=== PATIENT | male | born 1970 | race Caucasian/White ===

== ENCOUNTER → 2018-04-07 07:44 | Outpatient (CLI) | payer MEDICARE, MEDICAID, SELFPAY ==
[2018-04-07 08:36] LABS: Carbamazepine (Tegretol) 8.9 ug/mL (4.0-12.0)
[2018-04-10 11:51] LABS: Topiramate 14.2 ug/mL (2.0-25.0)
== END ==
PROVIDERS: Family Provider Family Medicine; PCP Family Medicine; Visit Provider Psychiatry & Neurology Neurology
DX: G25.0 Essential tremor (principal); G40.009 Localization-related (focal) (partial) idiopathic epilepsy and epileptic syndromes with seizures of localized onset, not intractable, without status epilepticus; G43.119 Migraine with aura, intractable, without status migrainosus; R27.0 Ataxia, unspecified
CPT/HCPCS: 36415; 80156; 80184; 80188; 80201

== ENCOUNTER 2018-05-27 15:07 | Observation (INO) | payer MEDICARE, MEDICAID, SELFPAY ==
[2018-05-27] VITALS (11 sets, daily range): BP systolic 102–148; BP diastolic 69–82; PULSE 74–87; RESP 14–16; TEMP 36.7–37; O2SAT 94–98; BMI 33.9; BMI 34.0
--- NOTE | 2018-05-27 15:55 | EKG12_ITS ---
Test Reason : POSTERIOR EKG Blood Pressure : / mmHG Vent. Rate : 085 BPM Atrial Rate : 085 BPM P-R Int : 182 ms QRS Dur : 090 ms QT Int : 384 ms P-R-T Axes : 023 011 -49 degrees QTc Int : 456 ms Normal sinus rhythm Anteroseptal infarct , age undetermined T wave abnormality, consider inferior ischemia Abnormal ECG Confirmed by CRISTEL HARRISON, NAYANA ([id number]), social media editor JANIS RILEY ([id number]) on 05/28/2018 1:32:24 PM Referred By: Ozzie Dailey Confirmed By:NAYANA FAM MD
--- NOTE | 2018-05-27 15:57 | RAD_ITS ---
STUDY: X-RAY CHEST REASON FOR EXAM: Male, 47 years old. Acute chest pain TECHNIQUE: Single AP portable view of the chest. COMPARISON: 01/29/2012 FINDINGS: EKG leads overlie the chest The lungs are clear and expanded. There is no demonstrated pleural abnormality. Normal size heart. Normal mediastinum and kemi. Normal visualized pulmonary arteries. Normal visualized aortic arch and descending thoracic aorta. Normal visualized thoracic spine. Normal visualized ribs, clavicles, and shoulders. There is no demonstrated abnormality of the visualized soft tissue structures of the upper abdomen. RAD/Chest 1 View (Portable) IMPRESSION: Normal x-ray examination of the chest. Electronically Signed: Moise Elliott MD at 16:28 EDT , Service support ,
[2018-05-27 16:17] LABS: Absolute Lymphocyte Count 1.75 X10^3/ul (0.83-4.51); Absolute Neutrophil Count 7.5 X10^3/uL (2.0-7.7); Basophil# 0.03 X10^3/uL; Basophil% 0.3 % (0-1); Eosinophils% 3.8 % (0-5); Hematocrit 40.2 % (40-54); Hemoglobin 14.3 g/dl (13.0-16.5); Lymphocyte # 1.75 X10^3/ul (4.0); Lymphocyte % 16.8 % (19-41); Mean Corp Hgb Conc 35.6 g/gl (32-36); Mean Corpuscular Hgb 31.2 pg (27.0-32.0); Mean Corpuscular Volume 87.6 fL (80-94); Mean Platelet Vol. 8.8 fl (6.2-12.0); Monocyte# 0.73 X10^3/uL; Neutrophil # 7.47 X10^3/uL (2.7-7.7); Neutrophil % 71.7 % (47-70); Platelet Count 260 K/mm3 (150-450); RBC Distribution Width CV 12.6 % (11.6-14.6); RBC Distribution Width SD 39.3 fl (35.1-43.9); Red Blood Count 4.59 M/mm3 (4.6-6.2); White Blood Count 10.4 K/mm3 (4.4-11.0)
--- NOTE | 2018-05-27 16:23 | ED.VISSUMM ---
- ER Visit Summary Date of Service: 05/27/18 Chief Complaint: Chest pain History of Present Illness: The patient is a 47 M presenting with chest pain. Patient states this started around 6 AM. Pain has been intermittent today. It is worsened with exertion and relieved with rest. It is a 5 out of 10 pressure sensation. He has associated shortness of breath. He denies nausea, vomiting, diaphoresis. Pain is in his left chest and radiates to his left jaw. No coronary disease risk factors. He has a remote history of basal cell carcinoma. He is not a smoker. Physical Examination: Vitals are stable. Patient is afebrile. Alert no acute distress. HEENT exam is unremarkable. Neck is supple. Lungs are clear and equal bilaterally. Heart is regular rate and rhythm. Abdomen is soft nontender nondistended. Extremities are unremarkable. Skin is warm and dry. No focal neurologic deficit. Remainder of exam is unremarkable. Emergency Department Course and Treatment: EKG is sinus rate of 81 with diffuse T-wave inversion. There is no old for comparison. CBC, chemistries unremarkable other than sodium 132. Troponin is negative. D-dimer negative. Dilantin level is less than 0.4. Patient has allergy to aspirin. Chest x-ray shows no acute process. He has mild depression in lead V2 and posterior EKG was obtained and shows no ST elevation. He is pain free on re-evaluation. Discussed with the hospitalist for observation. Disposition: Observation Impression: Chest pain This note was generated with woohoo mobile marketing dictation software. It may contain incorrect words, spelling, and punctuation that were not noted in review of the chart prior to signing ED Disposition - Plan for ED Patient: Disposition: Acute Care Hospital [facility] Chief Complaint: Chest Pain
[2018-05-27 16:25] LABS: POSITIVE COUNT NO; POSITIVE DIFFERENTIAL NO; POSITIVE MORPHOLOGY NO
[2018-05-27 16:28] LABS: D-Dimer Quantitative (DVT/PE) < 0.27 FEU/ug/m (0.27-0.49)
--- NOTE | 2018-05-27 16:31 | EKG12_ITS ---
Test Reason : CP Blood Pressure : / mmHG Vent. Rate : 081 BPM Atrial Rate : 081 BPM P-R Int : 182 ms QRS Dur : 090 ms QT Int : 364 ms P-R-T Axes : 004 017 -51 degrees QTc Int : 422 ms Normal sinus rhythm ST & T wave abnormality, consider inferior ischemia ST & T wave abnormality, consider anterolateral ischemia Abnormal ECG Confirmed by CRISTEL HARRISON, NAYANA ([id number]), graphic editor JANIS RILEY ([id number]) on 05/28/2018 1:32:58 PM Referred By: Ozzie Dailey Confirmed By:NAYANA FAM MD
[2018-05-27 16:35] LABS: Anion Gap 10 (5-15); BUN 8 mg/dL (7-18); BUN/Creat Ratio 7.8 RATIO (10-20); Calcium,Total 8.9 mg/dL (8.5-10.1); Chloride 102 mmol/L (98-107); Creatinine, Serum 1.03 mg/dL (0.70-1.30); EST Glomerular Filtration Rate 82 mL/min (>60); Est Glom Filt Rate - Afr Amer 99 mL/min (>60); Estimated Creatinine Clearance 96.27 ml/min; Glucose 94 mg/dL (74-106); Potassium 4.1 mmol/L (3.5-5.1); Sodium Level 132 mmol/L (136-145)
[2018-05-27 16:40] LABS: Phenytoin (Dilantin) Level < 0.4 mL (10.0-20.0)
--- NOTE | 2018-05-27 16:55 | NURSING ---
DR ÁNGEL MONTEJO
--- NOTE | 2018-05-27 17:10 | NURSING ---
115 OBS CP ÁNGEL
--- NOTE | 2018-05-27 17:46 | PCM.HP.STD ---
Problem List (1) Atypical chest pain Status: Acute (2) Epilepsy Status: Chronic (3) Migraine headache Status: Chronic (4) Dyslexia Status: Chronic (5) Obesity Status: Chronic History of Present Illness Date of Admission: 05/27/18 Chief Complaint: Chest pain today The patient is a 47 year old M with history of epilepsy, type and cause unclear but from childhood, delayed learning, dyslexia and migraine headache on multiple neurological medications came to ER with chest pain at 6 AM. Patient started having chest pain while he was having his breakfast cereal. Chest pain is localized on left side with no associated shortness of breath, palpitation, arrhythmia or diaphoresis but he was mildly dizzy. He denies any previous history of OH or coronary artery disease or stress or echo in the past. He does not know about his father but as per her mother, his grandfather had coronary artery disease and he in 80s. EKG shows normal sinus rhythm at 81 bpm with diffuse T-wave inversion V2 to V6, 1, aVL and inferior leads. Posterior lead EKG was done and shows slight ST elevation about 0.5-1 mm in V1 through V3 and AVR. ER physician Dr. Velasquez discussed with Dr. jennings, the whiskey regauger on-call and agreed for admission for chest pain and observation stress test tomorrow. D-dimer, troponin is negative. [] Past Medical History Past Medical History (Chronic Problems): Chronic Problems Epilepsy (Chronic) Migraine headache (Chronic) Dyslexia (Chronic) Obesity (Chronic) Allergies aspirin Allergy (Severe, Verified 06/09/14 09:01) swelling of lips red dye Allergy (Intermediate, Verified 06/09/14 09:01) facial swelling isoniazid Adverse Reaction (Verified 06/09/14 09:06) Nausea Home Medications: Ambulatory Orders Medication Instructions Recorded Benztropine [Cogentin] 2 mg PO BID 06/09/14 Carbamazepine [Tegretol] 200 - 400 mg PO .COMPLEX 06/09/14 Haloperidol 1.5 mg PO BID 06/09/14 Hydrocodone/Acetaminophen [Vicodin 1 tablet PO Q6H PRN PRN 06/09/14 5-300 mg Tablet] Lamotrigine [Lamictal] 150 mg PO DAILY 06/09/14 Lansoprazole [Prevacid] 30 mg PO DAILY 06/09/14 Dextroamphetamine/Amphetamine 30 mg PO DAILY 05/27/18 [Adderall 30 mg Tablet] Olanzapine/Fluoxetine HCl [Symbyax 3 capsule PO DAILY 05/27/18 6-25 MG Capsule] Primidone [Mysoline] 50 mg PO BID 05/27/18 Propranolol HCl [Propranolol HCl 160 mg PO DAILY 05/27/18 ER] Sumatriptan Succinate 50 mg PO Q2H PRN PRN 05/27/18 Tamsulosin HCl [Flomax] 0.4 mg PO QHS 05/27/18 Topiramate [Topamax] 400 mg PO BID 05/27/18 Smoking Status: Never smoker - *Family History Paternal History Items: Unknown Review of Systems Constitutional: Denies: Chills, Fever, Weight Change HEENT: Denies: Head Aches, Sinus Congestion, Sinus Drainage Cardiovascular: Reports: Chest Pain. Denies: Palpitations Respiratory: Denies: Cough, Shortness of breath at rest, Sputum production Gastrointestinal: Denies: Abdominal Pain, Nausea, Vomiting Genitourinary: Denies: Dysuria Musculoskeletal: Denies: Joint Pain, Joint Tenderness Skin: Denies: Rash, Wounds Neurological: Reports: Balance problems, Blurred vision, Headaches, Incoordination. Denies: Focal weakness, Numbness, Tingling Psychiatric: Denies: Anxiety, Depression, Homicidal Ideations, Suicidal Ideations Hematologic/ Lymphatic: Denies: Easy Bruising, Easy Bleeding VTE Information - Inpt Only VTE Present on Admission: No VTE Mechan Device Prophylaxis: None VTE Pharm Prophylaxis ordered?: Yes Patient Problems: Active and Suspected Problems Atypical chest pain (Acute) - Physical Exam General: Alert, Oriented x3, Cooperative, - HEENT: Atraumatic, PERRLA, EOMI, Normocephalic, - - Decreased revision of acuity Neck: Supple, No JVD, Negative Carotid Bruits Lungs: Clear to auscultation, Normal air movement, No rhonchi, No wheeze, No rales Cardiovascular: Regular rate, Regular Rhythm, Normal S1, Normal S2, No murmurs Abdomen: Bowel Sounds Present, Soft, Non Tender, Non-Distended Extremities: No edema, Capillary Refill Less than 3 Seconds Skin: No rashes, No breakdown Musculoskeletal: No Tenderness to Palpation of Joints or Extremities Neurological: Cranial nerves II-XII grossly intact, - - Decreased vision of acuity. Gait incoordination, low cognitive function Psych/Mental Status: Normal Affect, Appropriate Vital Signs Temp Pulse Resp BP Pulse Ox 98.1 F 76 14 121/72 H 98 05/27/18 15:11 05/27/18 17:11 05/27/18 17:11 05/27/18 17:11 05/27/18 17:11 Assessment/Plan All Active Problems Atypical chest pain (Acute) The patient is a 47 year old M with history of epilepsy, type and cause unclear but from childhood, delayed learning, dyslexia and migraine headache on multiple neurological medications came to ER with chest pain at 6 AM. Patient started having chest pain while he was having his breakfast cereal. Chest pain is localized on left side with no associated shortness of breath, palpitation, arrhythmia or diaphoresis but he was mildly dizzy. He denies any previous history of OH or coronary artery disease or stress or echo in the past. He does not know about his father but as per her mother, his grandfather had coronary artery disease and he in 80s. EKG shows normal sinus rhythm at 81 bpm with diffuse T-wave inversion V2 to V6, 1, aVL and inferior leads. Posterior lead EKG was done and shows slight ST elevation about 0.5-1 mm in V1 through V3 and AVR. Patient still feels chest pain though it is much better and almost resolved ER physician Dr. Velasquez discussed with Dr. jennings, the whiskey regauger on-call and agreed for admission for chest pain and observation stress test tomorrow. D-dimer, troponin is negative. 1. Atypical chest pain probably related to esophageal spasm, Rule out acute coronary syndrome: Patient is being admitted on PCU floor. Cycle cardiac enzymes. Repeat EKG after 4 hours. Lexiscan nuclear stress test tomorrow a.m. 2. Chronic epilepsy disorder, migraine headache, ADHD, delayed learning ability, gait incoordination and recurrent fall: Continue patient's multiple neurological medications. Patient follows Dr. rodriguez. He is on Tegretol, Lamictal, olanzapine/fluoxetine, propranolol, Cogentin, primidone, Topamax, haloperidol and dextroamphetamine. 3. Low functional capacity with recurrent fall: PT and OT ordered. His mother is caregiver. DVT prophylaxis: On Lovenox 40 mg subcut daily. [] Laboratory Results 05/27/18 15:20: WBC 10.4, RBC 4.59 L, Hgb 14.3, Hct 40.2, MCV 87.6, MCH 31.2, MCHC 35.6, RDW 12.6, RDW Differential 39.3, Plt Count 260, MPV 8.8, Immature Gran % (Auto) 0.400, Neut % (Auto) 71.7 H, Lymph % (Auto) 16.8 L, [place] % (Auto) 7.0, Eos % (Auto) 3.8, Baso % (Auto) 0.3, Absolute Neuts (auto) 7.5, Absolute Lymphs (auto) 1.75, Total Counted Not Reportable 05/27/18 15:20: D-Dimer Quant (PE/DVT) < 0.27 L 05/27/18 15:20: Sodium 132 L, Potassium 4.1, Chloride 102, Carbon Dioxide 20.0 L, Anion Gap 10, BUN 8, Creatinine 1.03, Estim Creat Clear Calc 96.27, Est GFR (MDRD) Af Amer 99, Est GFR (MDRD) Non-Af 82, BUN/Creatinine Ratio 7.8 L, Glucose 94, Calcium 8.9, Troponin I < 0.015 05/27/18 15:20: Phenytoin < 0.4 L Clinical Impression(s) from Imaging Studies Chest X-Ray 05/27/18 15:57 IMPRESSION: Normal x-ray examination of the chest. Code Visit OBSV E&M: 29507 Initial observation care L3
--- NOTE | 2018-05-27 17:58 | HP.PCM_ITS ---
Problem List (1) Atypical chest pain Status: Acute (2) Epilepsy Status: Chronic (3) Migraine headache Status: Chronic (4) Dyslexia Status: Chronic (5) Obesity Status: Chronic History of Present Illness Date of Admission: 05/27/18 Chief Complaint: Chest pain today The patient is a 47 year old M with history of epilepsy, type and cause unclear but from childhood, delayed learning, dyslexia and migraine headache on multiple neurological medications came to ER with chest pain at 6 AM. Patient started having chest pain while he was having his breakfast cereal. Chest pain is localized on left side with no associated shortness of breath, palpitation, arrhythmia or diaphoresis but he was mildly dizzy. He denies any previous history of NC or coronary artery disease or stress or echo in the past. He does not know about his father but as per her mother, his grandfather had coronary artery disease and he in 80s. EKG shows normal sinus rhythm at 81 bpm with diffuse T-wave inversion V2 to V6, 1, aVL and inferior leads. Posterior lead EKG was done and shows slight ST elevation about 0.5-1 mm in V1 through V3 and AVR. ER physician Dr. Velasquez discussed with Dr. ejnnings, the economics professor on-call and agreed for admission for chest pain and observation stress test tomorrow. D -dimer, troponin is negative. [] Past Medical History Past Medical History (Chronic Problems): Chronic Problems Epilepsy (Chronic) Migraine headache (Chronic) Dyslexia (Chronic) Obesity (Chronic) Allergies aspirin Allergy (Severe, Verified 06/09/14 09:01) swelling of lips red dye Allergy (Intermediate, Verified 06/09/14 09:01) facial swelling isoniazid Adverse Reaction (Verified 06/09/14 09:06) Nausea Home Medications: Ambulatory Orders Medication Instructions Recorded Benztropine [Cogentin] 2 mg PO BID 06/09/14 Carbamazepine [Tegretol] 200 - 400 mg PO .COMPLEX 06/09/14 Haloperidol 1.5 mg PO BID 06/09/14 Hydrocodone/Acetaminophen [Vicodin 1 tablet PO Q6H PRN PRN 06/09/14 5-300 mg Tablet] Lamotrigine [Lamictal] 150 mg PO DAILY 06/09/14 Lansoprazole [Prevacid] 30 mg PO DAILY 06/09/14 Dextroamphetamine/Amphetamine 30 mg PO DAILY 05/27/18 [Adderall 30 mg Tablet] Olanzapine/Fluoxetine HCl [Symbyax 3 capsule PO DAILY 05/27/18 6-25 MG Capsule] Primidone [Mysoline] 50 mg PO BID 05/27/18 Propranolol HCl [Propranolol HCl 160 mg PO DAILY 05/27/18 ER] Sumatriptan Succinate 50 mg PO Q2H PRN PRN 05/27/18 Tamsulosin HCl [Flomax] 0.4 mg PO QHS 05/27/18 Topiramate [Topamax] 400 mg PO BID 05/27/18 Smoking Status: Never smoker - *Family History Paternal History Items: Unknown Review of Systems Constitutional: Denies: Chills, Fever, Weight Change HEENT: Denies: Head Aches, Sinus Congestion, Sinus Drainage Cardiovascular: Reports: Chest Pain. Denies: Palpitations Respiratory: Denies: Cough, Shortness of breath at rest, Sputum production Gastrointestinal: Denies: Abdominal Pain, Nausea, Vomiting Genitourinary: Denies: Dysuria Musculoskeletal: Denies: Joint Pain, Joint Tenderness Skin: Denies: Rash, Wounds Neurological: Reports: Balance problems, Blurred vision, Headaches, Incoordination. Denies: Focal weakness, Numbness, Tingling Psychiatric: Denies: Anxiety, Depression, Homicidal Ideations, Suicidal Ideations Hematologic/ Lymphatic: Denies: Easy Bruising, Easy Bleeding VTE Information - Inpt Only VTE Present on Admission: No VTE Mechan Device Prophylaxis: None VTE Pharm Prophylaxis ordered?: Yes Patient Problems: Active and Suspected Problems Atypical chest pain (Acute) - Physical Exam General: Alert, Oriented x3, Cooperative, - HEENT: Atraumatic, PERRLA, EOMI, Normocephalic, - - Decreased revision of acuity Neck: Supple, No JVD, Negative Carotid Bruits Lungs: Clear to auscultation, Normal air movement, No rhonchi, No wheeze, No rales Cardiovascular: Regular rate, Regular Rhythm, Normal S1, Normal S2, No murmurs Abdomen: Bowel Sounds Present, Soft, Non Tender, Non-Distended Extremities: No edema, Capillary Refill Less than 3 Seconds Skin: No rashes, No breakdown Musculoskeletal: No Tenderness to Palpation of Joints or Extremities Neurological: Cranial nerves II-XII grossly intact, - - Decreased vision of acuity. Gait incoordination, low cognitive function Psych/Mental Status: Normal Affect, Appropriate Vital Signs Temp Pulse Resp BP Pulse Ox 98.1 F 76 14 121/72 H 98 05/27/18 15:11 05/27/18 17:11 05/27/18 17:11 05/27/18 17:11 05/27/18 17:11 Assessment/Plan All Active Problems Atypical chest pain (Acute) The patient is a 47 year old M with history of epilepsy, type and cause unclear but from childhood, delayed learning, dyslexia and migraine headache on multiple neurological medications came to ER with chest pain at 6 AM. Patient started having chest pain while he was having his breakfast cereal. Chest pain is localized on left side with no associated shortness of breath, palpitation, arrhythmia or diaphoresis but he was mildly dizzy. He denies any previous history of NC or coronary artery disease or stress or echo in the past. He does not know about his father but as per her mother, his grandfather had coronary artery disease and he in 80s. EKG shows normal sinus rhythm at 81 bpm with diffuse T-wave inversion V2 to V6, 1, aVL and inferior leads. Posterior lead EKG was done and shows slight ST elevation about 0.5-1 mm in V1 through V3 and AVR. Patient still feels chest pain though it is much better and almost resolved ER physician Dr. Velasquez discussed with Dr. jennings, the economics professor on-call and agreed for admission for chest pain and observation stress test tomorrow. D -dimer, troponin is negative. 1. Atypical chest pain probably related to esophageal spasm, Rule out acute coronary syndrome: Patient is being admitted on PCU floor. Cycle cardiac enzymes. Repeat EKG after 4 hours. Lexiscan nuclear stress test tomorrow a.m. 2. Chronic epilepsy disorder, migraine headache, ADHD, delayed learning ability , gait incoordination and recurrent fall: Continue patient's multiple neurological medications. Patient follows Dr. rodriguez. He is on Tegretol, Lamictal, olanzapine/fluoxetine, propranolol, Cogentin, primidone, Topamax, haloperidol and dextroamphetamine. 3. Low functional capacity with recurrent fall: PT and OT ordered. His mother is caregiver. DVT prophylaxis: On Lovenox 40 mg subcut daily. [] Laboratory Results 05/27/18 15:20: WBC 10.4, RBC 4.59 L, Hgb 14.3, Hct 40.2, MCV 87.6, MCH 31.2, MCHC 35.6, RDW 12.6, RDW Differential 39.3, Plt Count 260, MPV 8.8, Immature Gran % (Auto) 0.400, Neut % (Auto) 71.7 H, Lymph % (Auto) 16.8 L, [place] % (Auto) 7.0, Eos % (Auto) 3.8, Baso % (Auto) 0.3, Absolute Neuts (auto) 7.5, Absolute Lymphs (auto) 1.75, Total Counted Not Reportable 05/27/18 15:20: D-Dimer Quant (PE/DVT) < 0.27 L 05/27/18 15:20: Sodium 132 L, Potassium 4.1, Chloride 102, Carbon Dioxide 20.0 L , Anion Gap 10, BUN 8, Creatinine 1.03, Estim Creat Clear Calc 96.27, Est GFR ( MDRD) Af Amer 99, Est GFR (MDRD) Non-Af 82, BUN/Creatinine Ratio 7.8 L, Glucose 94, Calcium 8.9, Troponin I < 0.015 05/27/18 15:20: Phenytoin < 0.4 L Clinical Impression(s) from Imaging Studies Chest X-Ray 05/27/18 15:57 IMPRESSION: Normal x-ray examination of the chest. Code Visit OBSV E&M: [id number] Initial observation care L3
--- NOTE | 2018-05-27 18:26 | EKG12_ITS ---
Test Reason : CP ADMIT Blood Pressure : / mmHG Vent. Rate : 074 BPM Atrial Rate : 074 BPM P-R Int : 194 ms QRS Dur : 096 ms QT Int : 404 ms P-R-T Axes : 012 005 -33 degrees QTc Int : 448 ms Normal sinus rhythm ST & T wave abnormality, consider inferior ischemia ST & T wave abnormality, consider anterior ischemia Abnormal ECG When compared with ECG of 27-MAY-2018 16:50, MANUAL COMPARISON REQUIRED, DATA IS UNCONFIRMED Confirmed by CRISTEL HARRISON, NAYANA ([id number]), editorial intern JANIS RILEY ([id number]) on 06/03/2018 9:35:37 AM Referred By: Ozzie Dailey Confirmed By:NAYANA FAM MD
--- NOTE | 2018-05-27 21:07 | PCM.CONS.C ---
Reason for Consult Date of Consultation: 05/27/18 Reason for Consultation: Chest discomfort History of Present Illness: The patient is a 47 year old M with a history of seizure disorder, dyslexia and mild developmental delay presents to the emergency room with a history of chest discomfort which he describes as a squeezing sensation. He says that the above appears to all care when he exerts himself and is relieved by rest. He has not had any dizziness or diaphoresis near syncope or syncope. He has been compliant with all his medications which have been noncoronary related. He was evaluated in the emergency room and was noted to have significant EKG changes involving the inferior and lateral leads. He has not had recent cardiac evaluation. Due to the above it was felt that he should see the combining machine operator. At this time he says that with the nitroglycerin that he received his discomfort has improved. [] Past Medical History Allergies/Adverse Reactions: Allergies aspirin Allergy (Severe, Verified 06/09/14 09:01) swelling of lips red dye Allergy (Intermediate, Verified 06/09/14 09:01) facial swelling isoniazid Adverse Reaction (Verified 06/09/14 09:06) Nausea Home Medications: Ambulatory Orders Medication Instructions Recorded Benztropine [Cogentin] 2 mg PO BID 06/09/14 Haloperidol 1.5 mg PO BID 06/09/14 Hydrocodone/Acetaminophen [Vicodin 1 tablet PO Q6H PRN PRN 06/09/14 5-300 mg Tablet] Lamotrigine [Lamictal] 150 mg PO DAILY 06/09/14 Lansoprazole [Prevacid] 30 mg PO BID 06/09/14 Carbamazepine [Tegretol] 1 tab PO BREAKFAST 05/27/18 Carbamazepine [Tegretol] 400 mg PO DINNER 05/27/18 Dextroamphetamine/Amphetamine 30 mg PO DAILY 05/27/18 [Adderall 30 mg Tablet] Olanzapine/Fluoxetine HCl [Symbyax 3 capsule PO DINNER 05/27/18 6-25 MG Capsule] Primidone [Mysoline] 50 mg PO BID 05/27/18 Propranolol HCl [Propranolol HCl 160 mg PO DAILY 05/27/18 ER] Sumatriptan Succinate 50 mg PO Q2H PRN PRN 05/27/18 Tamsulosin HCl [Flomax] 0.4 mg PO QHS 05/27/18 Topiramate [Topamax] 400 mg PO BID 05/27/18 Past Medical History (Chronic Problems): Chronic Problems Epilepsy (Chronic) Migraine headache (Chronic) Dyslexia (Chronic) Obesity (Chronic) - *Family History Paternal History Items: Unknown Smoking Status: Never smoker Tobacco Use: Non-smoker Alcohol: None Drugs: None Review of Systems - Review of Systems General: Denies: Fever, Night Sweats, Fatigue Cardiovascular: Reports: Chest Discomfort at Rest, Chest Discomfort with Exertion. Denies: Chest Discomfort, Shortness of Breath, Orthopnea, PND, Peripheral Edema, Palpitations, Lightheadedness, Dizziness, Near Syncope, Syncope Respiratory: Denies: Cough, Sputum Production, Hemoptysis Gastrointestinal: Denies: Hematemesis, Hematochezia, Melena Genitourinary: Denies: Dysuria, Hematuria Skin: Denies: Rash Neurological: Reports: Falls, Decreased Coordination, Seizure Psychiatric: Reports: Anxiety Subjectve: Pleasant gentleman in no apparent distress Objective: Vital Signs Temp Pulse Resp BP Pulse Ox 98.6 F 75 16 125/69 H 94 05/27/18 17:53 05/27/18 19:00 05/27/18 17:53 05/27/18 17:53 05/27/18 17:53 Oxygen Delivery Method Room Air Weight: 250 lb 14.177 oz Body Mass Index (BMI) 34.0 General: Awake, Alert, Oriented x 3 HEENT: PERRL, EOMI, Sclera Non Icteric Neck: Supple, Good ROM, No Lymph Node Enlargement Lungs: Clear to auscultation Cardiovascular: Regular Rhythm, Normal S1, Normal S2, No Murmurs, No Rubs, No Gallops Vascular: No Carotid Bruits, Normal Femoral Pulses, Normal Radial Pulses, Normal Dorsalis Pedal Pulse, Normal Posterior Tibial Pulses Abdomen: Bowel Sounds Present, Soft, Non Tender, No HSM, No Organomegaly Extremities: No Cyanosis, No Clubbing, No edema Neurological: No Focal Motor or Sensory Deficit Psych/Mental Status: Anxious 05/27/18 18:22: Troponin I < 0.015 Rhythm: EKG: Normal sinus rhythm with downsloping ST depression noted in leads III, aVF, V2 through V5. Assessment/Plan 1. Chest discomfort Patient presents with chest discomfort with features which are somewhat typical but otherwise atypical for coronary artery disease. He however has significant EKG changes. It is not clear to me whether these EKG changes are secondary to some of the concomitant anti-seizure medications that he has or otherwise. It is felt that a stress test with his abnormal resting EKG changes may have diminished diagnostic acumen. After discussing with his mother who is the power of environmental attorney it is felt that a cardiac catheterization to assess his coronary anatomy should be performed. He does have an allergic reaction to aspirin and therefore we would proceed with only clopidogrel loading. If he needs to have stenting we may need to consider bare-metal stenting. The above has been discussed in detail with the patient to his understanding and his mother and they agreed to proceed in a.m. Thank you for allowing me to participate in the care of your patient. Please don't hesitate to call if any issues arise
[2018-05-27] MEDS: Tamsulosin HCl 0.4 MG Capsule PO (21:51)
[2018-05-27] MEDS: Primidone 50 MG Tablet PO (21:51)
[2018-05-27] MEDS: Pantoprazole Sodium 40 MG Tablet PO (21:51)
[2018-05-27] MEDS: Haloperidol 1 MG Tablet 1.5 MG PO (21:51)
[2018-05-27] MEDS: Topiramate 200 MG Tablet 400 MG PO (21:52)
[2018-05-27] MEDS: Clopidogrel Bisulfate 300 MG Tablet PO (21:52)
[2018-05-27] MEDS: Benztropine 2 MG Tablet PO (21:53)
[2018-05-27] MEDS: lamoTRIgine 150 MG Tablet PO (21:53)
[2018-05-27] MEDS: Enoxaparin 40 MG/0.4 ML Syringe SC (22:06)
[2018-05-27] MEDS: carBAMazepine 200 MG Tablet 400 MG PO (22:10)
[2018-05-28] VITALS (11 sets, daily range): BP systolic 115–142; BP diastolic 68–91; PULSE 71–84; RESP 14–16; TEMP 36.4–37; O2SAT 95–98
--- NOTE | 2018-05-28 04:00 | EKG12_ITS ---
Test Reason : AM EKG Blood Pressure : / mmHG Vent. Rate : 082 BPM Atrial Rate : 082 BPM P-R Int : 178 ms QRS Dur : 092 ms QT Int : 382 ms P-R-T Axes : 013 021 -10 degrees QTc Int : 446 ms Normal sinus rhythm ST & T wave abnormality, consider inferior ischemia ST & T wave abnormality, consider anterior ischemia Abnormal ECG Confirmed by CRISTEL HARRISON, NAYANA ([id number]), restaurant expeditor JANIS RILEY ([id number]) on 06/03/2018 9:34:59 AM Referred By: Ozzie Dailey Confirmed By:NAYANA FAM MD
[2018-05-28 05:14] LABS: Absolute Lymphocyte Count 1.26 X10^3/ul (0.83-4.51); Absolute Neutrophil Count 5.1 X10^3/uL (2.0-7.7); Basophil# 0.03 X10^3/uL; Basophil% 0.4 % (0-1); Eosinophil# 0.28 X10^3/uL; Eosinophils% 3.8 % (0-5); Hemoglobin 13.9 g/dl (13.0-16.5); Lymphocyte # 1.26 X10^3/ul (4.0); Lymphocyte % 17.2 % (19-41); Mean Corp Hgb Conc 34.8 g/gl (32-36); Mean Corpuscular Hgb 30.3 pg (27.0-32.0); Mean Corpuscular Volume 87.3 fL (80-94); Mean Platelet Vol. 8.5 fl (6.2-12.0); Monocyte# 0.64 X10^3/uL; Monocyte% 8.7 % (0-10); Neutrophil % 69.5 % (47-70); Platelet Count 235 K/mm3 (150-450); RBC Distribution Width CV 12.6 % (11.6-14.6); RBC Distribution Width SD 39.4 fl (35.1-43.9); Red Blood Count 4.58 M/mm3 (4.6-6.2); White Blood Count 7.3 K/mm3 (4.4-11.0)
[2018-05-28 05:22] LABS: POSITIVE COUNT NO; POSITIVE DIFFERENTIAL NO; POSITIVE MORPHOLOGY NO
[2018-05-28 05:30] LABS: International Normalized Ratio 1.1; Partial Thromboplast Time 31.2 Seconds (24.1-36.2); Prothrombin Time (Protime)PT. 14.2 SECONDS (11.7-14.9)
[2018-05-28 05:39] LABS: Anion Gap 11 (5-15); BUN 10 mg/dL (7-18); BUN/Creat Ratio 12.2 RATIO (10-20); Calcium,Total 8.3 mg/dL (8.5-10.1); Chloride 104 mmol/L (98-107); Cholesterol 142 mg/dL (200); Creatinine, Serum 0.82 mg/dL (0.70-1.30); EST Glomerular Filtration Rate 107 mL/min (>60); Est Glom Filt Rate - Afr Amer 129 mL/min (>60); Estimated Creatinine Clearance 120.92 ml/min; Glucose 113 mg/dL (74-106); High Density Lipoprotein 33 mg/dL; Potassium 3.8 mmol/L (3.5-5.1); Sodium Level 133 mmol/L (136-145); Thyroid Stim Hormone (TSH) 1.99 uIU/mL (0.358-3.74); Triglycerides 135 mg/dL; Very Low Density Lipoprotein 27 mg/dL (5-40)
[2018-05-28 05:54] LABS: BNP,B-Type NATRIURETIC PEPTIDE 31.9 pg/mL (0-100)
[2018-05-28] MEDS: Propranolol LA 80 MG Capsule 160 MG PO (06:09)
[2018-05-28] MEDS: Clopidogrel Bisulfate 75 MG Tablet PO (06:09)
[2018-05-28] MEDS: 0.9% Normal Saline 1,000 ML 15 ML IV (06:17)
--- NOTE | 2018-05-28 08:42 | PCM.PN.CARD ---
Subjectve: Patient seen and evaluated and underwent cardiac catheterization today. Objective: Vital Signs Temp Pulse Resp BP Pulse Ox 97.5 F L 82 16 122/73 H 97 05/28/18 05:55 05/28/18 07:00 05/28/18 05:55 05/28/18 05:55 05/28/18 05:55 Oxygen Delivery Method Room Air Weight: 250 lb 14.177 oz Body Mass Index (BMI) 34.0 Intake and Output for Last 24 Hours 05/26/18 05/27/18 05/28/18 23:59 23:59 23:59 Intake Total 100 / 100 Balance 100 / 100 General: Awake, Alert, Oriented x 3 HEENT: PERRL, EOMI, Sclera Non Icteric Neck: Supple, Good ROM, No Lymph Node Enlargement Lungs: Clear to auscultation Cardiovascular: Regular Rhythm, Normal S1, Normal S2, No Murmurs, No Rubs, No Gallops Vascular: No Carotid Bruits, Normal Femoral Pulses, Normal Radial Pulses, Normal Dorsalis Pedal Pulse, Normal Posterior Tibial Pulses Abdomen: Bowel Sounds Present, Soft, Non Tender, No HSM, No Organomegaly Extremities: No Cyanosis, No Clubbing, No edema Neurological: No Focal Motor or Sensory Deficit 05/27/18 18:22: Troponin I < 0.015 05/27/18 22:39: Troponin I < 0.015 05/28/18 04:48: Sodium 133 L, Potassium 3.8, Chloride 104, Carbon Dioxide 18.0 L, Anion Gap 11, BUN 10, Creatinine 0.82, Est GFR (MDRD) Af Amer 129, Est GFR (MDRD) Non-Af 107, BUN/Creatinine Ratio 12.2, Glucose 113 H, Calcium 8.3 L, Triglycerides 135, Cholesterol 142, LDL Cholesterol 82, VLDL Cholesterol 27, HDL Cholesterol 33 L 05/28/18 04:48: B-Natriuretic Peptide 31.9 05/28/18 04:48: WBC 7.3, RBC 4.58 L, Hgb 13.9, Hct 40.0, MCV 87.3, MCH 30.3, MCHC 34.8, RDW 12.6, RDW Differential 39.4, Plt Count 235, MPV 8.5, Immature Gran % (Auto) 0.400, Neut % (Auto) 69.5, Lymph % (Auto) 17.2 L, [place] % (Auto) 8.7, Eos % (Auto) 3.8, Baso % (Auto) 0.4, Absolute Neuts (auto) 5.1, Total Counted Not Reportable 05/28/18 04:48: PT 14.2, INR 1.1, APTT 31.2 Rhythm: EKG: ECHO: Stress Test: Cardiac Cath: PCI: CT Surgery: Holter monitor: EPS: PPM: CXR: Chest CT Scan: Medical Necessity - Tobacco Use Smoking Status: Never smoker Tobacco Use: Non-smoker Assessment/Plan 1. Chest discomfort Patient presents with chest discomfort with features which are somewhat typical but otherwise atypical for coronary artery disease. He however has significant EKG changes. It is not clear to me whether these EKG changes are secondary to some of the concomitant anti-seizure medications that he has or otherwise. It is felt that a stress test with his abnormal resting EKG changes may have diminished diagnostic acumen. After discussing with his mother who is the power of disability attorney it is felt that a cardiac catheterization to assess his coronary anatomy should be performed. His cardiac catheterization performed today demonstrated normal coronary arteries. The EKG changes are likely secondary to his other medications. Obtain an echo to assess his LV function Patient can be discharged later today. Thank you for allowing me to participate in the care of your patient. Please don't hesitate to call if any issues arise
[2018-05-28] MEDS: Benztropine 2 MG Tablet PO (10:05)
[2018-05-28] MEDS: Primidone 50 MG Tablet PO (10:07)
[2018-05-28] MEDS: Topiramate 200 MG Tablet 400 MG PO (10:09)
[2018-05-28] MEDS: carBAMazepine 200 MG Tablet PO (10:16)
[2018-05-28] MEDS: Pantoprazole Sodium 40 MG Tablet PO (10:16)
[2018-05-28] MEDS: DEXTROAMPHETAMINE/AMPHETAMINE 30 MG TABLET PO (10:23)
--- NOTE | 2018-05-28 11:57 | PCM.DC ---
- Discharge Diagnoses Current Active Problems: Current Active and Chronic Problems Atypical chest pain (Acute) Epilepsy (Chronic) Migraine headache (Chronic) Dyslexia (Chronic) Obesity (Chronic) You will use the following diet at home:: No restrictions Your food should be the consistency of: Regular Your liquids should be the consistency of: Regular/Thin Discharge Activity: Return to Normal Activity Weight Bearing Status: Full weight bearing Allergies/Adverse Reactions: Allergies aspirin Allergy (Severe, Verified 06/09/14 09:01) swelling of lips red dye Allergy (Intermediate, Verified 06/09/14 09:01) facial swelling isoniazid Adverse Reaction (Verified 06/09/14 09:06) Nausea Medications to take at Discharge Benztropine [Cogentin] 2 mg PO BID 06/09/14 Haloperidol 1.5 mg PO BID 06/09/14 Hydrocodone/Acetaminophen [Vicodin 5-300 mg Tablet] 1 tablet PO Q6H PRN PRN 06/09/14 Lamotrigine [Lamictal] 150 mg PO DAILY 06/09/14 Lansoprazole [Prevacid] 30 mg PO BID 06/09/14 Carbamazepine [Tegretol] 1 tab PO BREAKFAST 05/27/18 Carbamazepine [Tegretol] 400 mg PO DINNER 05/27/18 Dextroamphetamine/Amphetamine [Adderall 30 mg Tablet] 30 mg PO DAILY 05/27/18 Olanzapine/Fluoxetine HCl [Symbyax 6-25 MG Capsule] 3 capsule PO LUNCH 05/27/18 Primidone [Mysoline] 50 mg PO BID 05/27/18 Propranolol HCl [Propranolol HCl ER] 160 mg PO DAILY 05/27/18 Sumatriptan Succinate 50 mg PO Q2H PRN PRN 05/27/18 Tamsulosin HCl [Flomax] 0.4 mg PO QHS 05/27/18 Topiramate [Topamax] 400 mg PO BID 05/27/18 Primary Care Physician: Isabelle Aburto MD [Primary Care Provider] - Please follow up with your Primary Care Physician in: in 2 weeks Test Results: Test results from this visit will be discussed in further detail at your follow-up appointment, if applicable.
--- NOTE | 2018-05-28 12:53 | NURSING ---
heart cath recovery complete. pt walked in halls with this RN with no complications
--- NOTE | 2018-05-29 18:54 | PCM.DC.SUM ---
Discharge Date and Diagnosis Date of Admission: 05/27/18 Date of Discharge: 05/28/18 - Primary Discharge Diagnosis #1 musculoskeletal chest pain #2 seizure disorder #3 chronic migraine cephalgia - Secondary Discharge Diagnosis Chronic Problems Epilepsy (Chronic) Migraine headache (Chronic) Dyslexia (Chronic) Obesity (Chronic) Hospital Course and Treatment Operations: None Procedures: Cardiac catheterization Summary of Care Provided: The patient is a 47 year old M who was seen in the emergency room at [facility] with chief complaint of chest pain. Workup in the emergency room included an EKG which showed a normal sinus rhythm of 81 with diffuse T-wave inversions, CBC and chemistry profile is unremarkable other than a sodium of 132. Troponin was negative, patient's d-dimer was negative, chest x-ray showed no acute process. Patient was placed in observation status on PCU and seen in consultation by cardiology, a cardiac catheterization was performed on 05/28/18 and this showed no evidence of coronary artery disease. Patient was seen and examined on 05/28/18 and discharged home in stable condition Discharge Activity: Return to Normal Activity Weight Bearing Status: Full weight bearing Home Medications: Medications to take at Discharge Benztropine [Cogentin] 2 mg PO BID 06/09/14 Haloperidol 1.5 mg PO BID 06/09/14 Hydrocodone/Acetaminophen [Vicodin 5-300 mg Tablet] 1 tablet PO Q6H PRN PRN 06/09/14 Lamotrigine [Lamictal] 150 mg PO DAILY 06/09/14 Lansoprazole [Prevacid] 30 mg PO BID 06/09/14 Carbamazepine [Tegretol] 1 tab PO BREAKFAST 05/27/18 Carbamazepine [Tegretol] 400 mg PO DINNER 05/27/18 Dextroamphetamine/Amphetamine [Adderall 30 mg Tablet] 30 mg PO DAILY 05/27/18 Olanzapine/Fluoxetine HCl [Symbyax 6-25 MG Capsule] 3 capsule PO LUNCH 05/27/18 Primidone [Mysoline] 50 mg PO BID 05/27/18 Propranolol HCl [Propranolol HCl ER] 160 mg PO DAILY 05/27/18 Sumatriptan Succinate 50 mg PO Q2H PRN PRN 05/27/18 Tamsulosin HCl [Flomax] 0.4 mg PO QHS 05/27/18 Topiramate [Topamax] 400 mg PO BID 05/27/18 Primary Care Physician: Isabelle Aburto MD [Primary Care Provider] - Please follow up with your Primary Care Physician in: in 2 weeks Please Follow Up With: Isabelle Aburto MD Disposition: Home Minutes spent on discharge:: 25 Patient Condition:: Stable Medical Necessity - Tobacco Use Smoking Status: Never smoker Tobacco Use: Non-smoker Meaningful Use Info Meaningful Use Diagnoses (Choose all that apply): None applicable Code Visit OBSV E&M: 45151 Observation care discharge
--- NOTE | 2018-05-29 19:04 | DS.PCM_ITS ---
Discharge Date and Diagnosis Date of Admission: 05/27/18 Date of Discharge: 05/28/18 - Primary Discharge Diagnosis #1 musculoskeletal chest pain #2 seizure disorder #3 chronic migraine cephalgia - Secondary Discharge Diagnosis Chronic Problems Epilepsy (Chronic) Migraine headache (Chronic) Dyslexia (Chronic) Obesity (Chronic) Hospital Course and Treatment Operations: None Procedures: Cardiac catheterization Summary of Care Provided: The patient is a 47 year old M who was seen in the emergency room at [facility] with chief complaint of chest pain. Workup in the emergency room included an EKG which showed a normal sinus rhythm of 81 with diffuse T- wave inversions, CBC and chemistry profile is unremarkable other than a sodium of 132. Troponin was negative, patient's d-dimer was negative, chest x-ray showed no acute process. Patient was placed in observation status on PCU and seen in consultation by cardiology, a cardiac catheterization was performed on and this showed no evidence of coronary artery disease. Patient was seen and examined on 05/28/18 and discharged home in stable condition Discharge Activity: Return to Normal Activity Weight Bearing Status: Full weight bearing Home Medications: Medications to take at Discharge Benztropine [Cogentin] 2 mg PO BID 06/09/14 Haloperidol 1.5 mg PO BID 06/09/14 Hydrocodone/Acetaminophen [Vicodin 5-300 mg Tablet] 1 tablet PO Q6H PRN PRN 10/22 Lamotrigine [Lamictal] 150 mg PO DAILY 06/09/14 Lansoprazole [Prevacid] 30 mg PO BID 06/09/14 Carbamazepine [Tegretol] 1 tab PO BREAKFAST 05/27/18 Carbamazepine [Tegretol] 400 mg PO DINNER 05/27/18 Dextroamphetamine/Amphetamine [Adderall 30 mg Tablet] 30 mg PO DAILY 05/27/18 Olanzapine/Fluoxetine HCl [Symbyax 6-25 MG Capsule] 3 capsule PO LUNCH 05/27/18 Primidone [Mysoline] 50 mg PO BID 05/27/18 Propranolol HCl [Propranolol HCl ER] 160 mg PO DAILY 05/27/18 Sumatriptan Succinate 50 mg PO Q2H PRN PRN 05/27/18 Tamsulosin HCl [Flomax] 0.4 mg PO QHS 05/27/18 Topiramate [Topamax] 400 mg PO BID 05/27/18 Primary Care Physician: Isabelle Aburto MD [Primary Care Provider] - Please follow up with your Primary Care Physician in: in 2 weeks Please Follow Up With: Isabelle Aburto MD Disposition: Home Minutes spent on discharge:: 25 Patient Condition:: Stable Medical Necessity - Tobacco Use Smoking Status: Never smoker Tobacco Use: Non-smoker Meaningful Use Info Meaningful Use Diagnoses (Choose all that apply): None applicable Code Visit OBSV E&M: 24046 Observation care discharge
== END 2018-05-28 11:58 | disposition home or self-care (01) ==
LOC: ED 15:55 → PCU 17:19
PROVIDERS: Admitting Provider Internal Medicine; Emergency Provider Emergency Medicine; Family Provider Family Medicine; PCP Family Medicine; Visit Provider Internal Medicine
DX: R07.89 Other chest pain (principal); R48.0 Dyslexia and alexia; G40.909 Epilepsy, unspecified, not intractable, without status epilepticus; G43.909 Migraine, unspecified, not intractable, without status migrainosus; E66.9 Obesity, unspecified; Z68.34 Body mass index [BMI] 34.0-34.9, adult; Z71.3 Dietary counseling and surveillance; R06.02 Shortness of breath; R94.31 Abnormal electrocardiogram [ECG] [EKG]; Z79.899 Other long term (current) drug therapy; F90.9 Attention-deficit hyperactivity disorder, unspecified type; K21.9 Gastro-esophageal reflux disease without esophagitis
CPT/HCPCS: 36415; 71045; 80048; 80061; 80185; 83880; 84443; 84484; 85025; 85379; 85610; 85730; 93005; 93454; 96372; 97802; 99152; 99153; 99218; 99282; C1760; J7030; Q9967; C1769; C1887; C1894; G0378

== ENCOUNTER 2018-07-10 10:00 | Outpatient (RCR) | payer MEDICARE, MEDICAID, SELFPAY ==
--- NOTE | 2018-04-17 14:58 | HP.PTEVAL_ITS ---
Patient's Visit Information GALLO CASTILLO is a 47 year old M referred to Physical Therapy by Del Martinez MD with a diagnosis of Unsteadiness, on feet.. Date of Evaluation: 04/17/18 Physical Therapist: Jhonatan Simon DPT, OC - Visit Plan Frequency: 2x /Week Duration: 2 Months Plan: Neurocom assessment then 2x/week for 4-8 weeks for. VOR progression. balance per neurocom. LE strength and postural strength education that pt can do at home when done. - Subjective Subjective: Falls. Starts shaking and wobbling and falls like tree being cut down. Happened 2x/ this week. Also 2x in March. Mom with him and said he is having seizures. Has changed seizure meds, has had blood work and will have MRI Friday. Hs essential tremors. Falling has been there for years. Has had seizures since a child but was seizure free 1977 to just recently. Did have EEG in October. No spinning, no numbness in arms and legs. Sleeping OK. Not employed and on disability due to seizures. Spends day taking care of yard and helping with cats and housework when able. Couch watching TV and reading. No regular ex outside of walking around block every day. Lives in small two story house and difficulty getting around. dresses self. ]bought cane yesterday, used a different one from time to time prior. - Objective Walks with cane L UE mod I, slow and lumbering. Trasnitions to stand tending to use UE but can do it without.. HS and gastroc mod tight at -30 90/90 test adn 0 DF. Coordination to reciprocal toe tap and inv/ev movement is poor. reflexes 0/3 patella and achilles B. Sensation WNL to gross light touch LE. Strength 3+ ankles, 4 knees and 4- hips B. VOR is very challenging to keep eyes on target, asymptomatic but cannot do it without going very slow. Unable to do it in standing. - Balance Scores Functional Gait Assessment Score: 24 % Disability: 20.0000 CATSIB Score (Max score 120 seconds): 100 - Goals Goal 1:: FGA to decrease risk of falling. Goal 2:: I approp HEP to minimize future problems for balance and strength LE. Goal Time Frame: 6-8 Weeks Goal 3:: pt report 50% improvement in condition and improvement with falls/ steadiness. Goal Time Frame: 4-6 Weeks - Rehabilitation Potential Physical Therapy Diagnosis: Unsteadiness on feet. Rehabilitation Potential: Fair - Anticipated Interventions Patient/Client Instruction: Educate patient on: Condition, Plan of Care For the Purpose of:: To decrease pain, To improve balance Therapeutic Exercise to Include: Strength training, Balance training, Gait and locomotor training For the Purpose of:: To improve ability of physical actions for home/community/ work/leisure, To improve balance Thank you for the opportunity to evaluate your patient. For Medicare and Medicare HMO plans, please review the plan of care and approve it. It will need to be FAXED BACK to us at [phone] for Medicare purposes. Please let me know if there are questions or concerns regarding this plan of care. Physician Signature: Date:
--- NOTE | 2018-05-01 14:46 | HP.PTCOM ---
PT Communication Note 05/01/[address] Del Martinez MD , Thank you for the referral of Michael to [facility] for balance assessment. I have enclosed a copy of the results for your review. In summation, he scored fairly well on the Sensory Organization test. He showed a lot of latency on the Motor Control Test. He showed extremely poor directional control on the Limits of Stability Test as well as some forward weight shift excursion deficits and some reaction time slowness. With these results in mind, I plan to see him 2x/week for 4-8 weeks for VOR exercises, weight shifting instruction and balance and strength exercises. If there are questions regarding his balance or therapy, please feel free to call me. Thank you again for this referral. Sincerely, Jhonatan Simon DPT, OC Contact Information
--- NOTE | 2018-05-01 14:49 | HP.PTCOM_ITS ---
PT Communication Note 05/01/[address] Del Martinez MD , Thank you for the referral of Michael to [facility] for balance assessment. I have enclosed a copy of the results for your review. In summation, he scored fairly well on the Sensory Organization test. He showed a lot of latency on the Motor Control Test. He showed extremely poor directional control on the Limits of Stability Test as well as some forward weight shift excursion deficits and some reaction time slowness. With these results in mind, I plan to see him 2x/week for 4-8 weeks for VOR exercises, weight shifting instruction and balance and strength exercises. If there are questions regarding his balance or therapy, please feel free to call me. Thank you again for this referral. Sincerely, Jhonatan Simon DPT, OC Contact Information
--- NOTE | 2018-07-03 15:49 | HP.PTREVAL ---
Del Martinez MD, It has been my pleasure to treat GALLO CASTILLO over the last 6 visits for Unsteadiness, on feet.. Please see the progress note below for an update on the physical therapy plan of care! Subjective: Doctor did EKG and it was abnormal and admitted to hospital on 06/26 which did heart cath whcih found the heart to be healthy. Has chest pain intermittently but hasn't been given instruct other than live with the chest pain. To neurologist next month. CHest pain and migraines has held him back. Has fallen a couple times and does not feel steady. Is trying to stand for a while before he starts moving. No spinning but feels unsteady out of nowhere. Uses cane when needed(when not prideful). Chronic migraines for years and starting a new treatment with Dr. Martinez next month due to ins limitations. Feels a little better overall then when starting as far as balance goes. Objective/Function: FGA is same as last visit as is romberg. Pt ambulates well on firm flat surface with light. Not surprisingly, no major changes to presentation as patient has not been able to be consistent with PT. Has regular chest pain that doctor is aware of and he is to not do anything with it unless it worsens or becomes more frequent(subjectively). Long talk regarding appropriateness of timing of PT and importance of consistency. Plan Plan: 2 visits to teach balance(weight shifts, narrow CRUZ, ec, VOR) and strengthening(sink) ex patient can do at home with list/pics. Please make sure he has this list after two visits as he will f/u with PT a month later to check goals and balance. Goals Goal 1:: FGA to decrease risk of falling. Goal Time Frame: 4-6 Weeks Goal Progress: still approp Goal 2:: I approp HEP to minimize future problems for balance and strength LE. Goal Time Frame: 6-8 Weeks Goal Progress: approp Goal 3:: pt report 50% improvement in condition and improvement with falls/steadiness. Goal Time Frame: 4-6 Weeks Goal Progress: approp Anticipated Interventions Patient/Client Instruction: Educate patient on: Condition, Plan of Care For the Purpose of:: To decrease pain, To improve balance Therapeutic Exercise to Include: Strength training, Balance training, Gait and locomotor training For the Purpose of:: To improve ability of physical actions for home/community/work/leisure, To improve balance Please do not hesitate to contact me at [phone] by phone or if you have questions or concerns regarding this new plan of care! Sincerely, Jhonatan Simon, DPT, OC
--- NOTE | 2018-09-18 13:57 | HP.PTDCNRP_ITS ---
HP - Discharge Summary (1) - Patient Information GALLO CASTILLO was seen in my office for initial evaluation on 04/17/18. The following Plan of Care was established for this patient: Initial Frequency: 2x /Week Initial Duration: 2 Months - Anticipated Interventions Patient/Client Instruction: Educate patient on: Condition, Plan of Care For the Purpose of:: To decrease pain, To improve balance Therapeutic Exercise to Include: Strength training, Balance training, Gait and locomotor training For the Purpose of:: To improve ability of physical actions for home/co mmunity/work/leisure, To improve balance This patient was last seen in our office 07/10/18. Pertinent comments regarding their Physical therapy will appear below: Pt seen 8 visits of his plan of carfe over long duration of time. He was to continue with HEP adn f/u with therapist end July but did not schedule or attend. I will discontinue at this point as it has been over a month. At this point I will be discontinuing this patient from physical therapy. I would be happy to see this patient again in the future if found appropriate by the physician. Thank you! Jhonatan Simon, DPT, OCS, CSCS
== END 2018-07-10 19:00 | disposition home or self-care (01) ==
LOC: PT 10:00
PROVIDERS: Family Provider Family Medicine; PCP Family Medicine; Visit Provider Psychiatry & Neurology Neurology
DX: R26.81 Unsteadiness on feet (principal)
CPT/HCPCS: 97110; 97116; 97162; 97164; 97530; 97750

== ENCOUNTER → 2018-07-17 07:46 | Outpatient (CLI) | payer MEDICARE, MEDICAID, SELFPAY ==
[2018-07-17 09:07] LABS: Cholesterol 128 mg/dL (200); High Density Lipoprotein 36 mg/dL; Triglycerides 75 mg/dL; Very Low Density Lipoprotein 15 mg/dL (5-40)
== END ==
PROVIDERS: Family Provider Family Medicine; PCP Family Medicine; Referring Provider Psychiatry & Neurology Neurology; Visit Provider Psychiatry & Neurology Neurology
DX: I67.9 Cerebrovascular disease, unspecified (principal); D51.3 Other dietary vitamin B12 deficiency anemia; Z79.899 Other long term (current) drug therapy
CPT/HCPCS: 36415; 80061

== ENCOUNTER 2018-10-31 06:35 | Emergency (ER) | payer MEDICARE, MEDICAID, SELFPAY ==
[2018-10-31] VITALS (7 sets, daily range): BP systolic 109–144; BP diastolic 71–98; PULSE 75–84; RESP 16–20; TEMP 36.9; O2SAT 96–99; BMI 15.2; BMI 35.4
--- NOTE | 2018-10-31 06:40 | RAD_ITS ---
HISTORY: PT FELL THIS MORNING PAIN SWELLNG RT WRIST COMPARISON: None FINDINGS: XR right wrist 4 views Transverse, mildly comminuted fracture of the distal right radial metaphysis with dorsal displacement and dorsal angulation of the major distal fracture fragment. The remaining visualized bones appear intact. Shortening of the wrist with ulnar impingement of the breast related to distal Colles' fracture. The distal ulna appears intact. No dislocation. RAD/Wrist min 3 Views IMPRESSION: 1. Mildly comminuted Colles' type fracture of the distal right radius. 2. Secondary shortening of the wrist with ulnar impingement of the wrist. at 0710 Reported and signed by: Riley Brooks MD Electronically Signed: Riley Brooks, at 7:09 EST Tel , Service support ,
--- NOTE | 2018-10-31 07:29 | RAD_ITS ---
STUDY: X-RAY - RIGHT WRIST REASON FOR EXAM: Male, 48 years old. Post reduction. TECHNIQUE: 3 view(s) of the wrist were obtained. COMPARISON: 31 October 2018. FINDINGS: Again noted is comminuted fracture of the distal radius now showing near anatomic alignment. Normal radiocarpal articulation. Normal distal radioulnar articulation. Normal carpal bones. Normal carpal articulations. Normal carpometacarpal articulation of the thumb. Normal second through fifth carpometacarpal articulations. Normal visualized metacarpal bones. The soft tissue structures are unremarkable. RAD/Wrist 2 Views IMPRESSION: Post reduction showing near anatomic alignment of the comminuted fracture the distal radius with osseous detail obscured by overlying casting material. Electronically Signed: Vito Cristina DO at 10:01 EST , Service support ,
--- NOTE | 2018-10-31 07:29 | ED.VISSUMM ---
- ER Visit Summary Date of Service: 10/31/18 Chief Complaint: Right wrist injury History of Present Illness: The patient is a 48 M who presents the emergency department following a fall that happened while he was feeding his right wrist. He denies any other injuries. He is left-handed. He denies any paresthesias of the fingers. Limited range of motion at the wrist. Physical Examination: Afebrile vital signs stable Gen: Well-nourished well-developed Head: Normocephalic atraumatic Eyes: Perrl EOMI ENT: TMs clear no rhinorrhea moist mucous membranes Neck: Supple no lymphadenopathy no JVD nontender CVS: Regular rate rhythm no murmurs normal S1-S2 Respiratory: No distress clear to auscultation bilaterally chest nontender Abdomen: Soft nontender nondistended normal bowel sounds no masses Back: Nontender Extremity: There is an obvious deformity to the right wrist. He is neurovascularly intact. There is not appear to be any open wounds. Skin: Normal color no rash Neuro: alert orientated ?3 CN II-XII intact normal strength sensation reflexes gait cerebellar Psych: Normal affect normal mood Test Results: X-rays reveal a distal radius fracture with dorsal displacement. Emergency Department Course and Treatment: Patient provided informed consent for the use of propofol for procedural sedation. Patient was prepped in usual manner and received 800 mg of propofol bolus. Adequate sedation was achieved and using standard reduction the fracture was reduced. C arm shows adequate reduction. Patient was placed in AP plaster splint. He was allowed to recover without any hypoxia, apnea, or hypotension. No evidence of aspiration. Postreduction films show adequate reduction. He will be referred to orthopedics. I will write for [place]. Impression: 1. Right distal radius fracture 2. Splint by physician 3. Procedural sedation by emergency physician 4. Reduction of fracture by emergency physician This note was generated with [employer] ([employer]) dictation software. It may contain incorrect words, spelling, and punctuation that were not noted in review of the chart prior to signing ED Disposition - Plan for ED Patient: Disposition: Home or Assisted Living Instructions: ED Fx Wrist General Prescriptions: Hydrocodone Bitart/Apap 5-325 [[place] 5MG-325MG] 1 tab PO Q6H PRN PRN 3 Days #12 tab PRN Reason: Pain Referrals: Tony Monroe MD [STAFF PHYSICIAN] - (CALL ON FRIDAY AM TO ARRANGE FOLLOW UP APPOINTMENT)
[2018-10-31] MEDS: fentaNYL 100 MCG/2 ML Ampul 50 MCG IV (07:35)
[2018-10-31] MEDS: Propofol 200 MG/20 ML Vial IV BOLUS (07:40)
== END 2018-10-31 08:53 | disposition home or self-care (01) ==
PROVIDERS: Emergency Provider Emergency Medicine; Family Provider Family Medicine; PCP Family Medicine
DX: S52.501A Unspecified fracture of the lower end of right radius, initial encounter for closed fracture (principal); G40.909 Epilepsy, unspecified, not intractable, without status epilepticus; Z79.899 Other long term (current) drug therapy; W19.XXXA Unspecified fall, initial encounter; Y93.89 Activity, other specified; Y92.89 Other specified places as the place of occurrence of the external cause; Y99.8 Other external cause status
CPT/HCPCS: 25605; 73100; 73110; 76000; 96374; 96375; 99152; 99283; J7030; A4216

== ENCOUNTER → 2018-11-10 06:30 | Outpatient (CLI) | payer MEDICARE, MEDICAID, SELFPAY ==
[2018-10-31 07:58] VITALS: BMI 35.4
[2018-11-10 07:35] LABS: Carbamazepine (Tegretol) 9.1 ug/mL (4.0-12.0)
[2018-11-12 12:56] LABS: Primidone, Serum 1.1 ug/mL (5.0-12.0); Topiramate 18.4 ug/mL (2.0-25.0)
== END ==
PROVIDERS: Family Provider Family Medicine; PCP Family Medicine; Referring Provider Psychiatry & Neurology Neurology; Visit Provider Psychiatry & Neurology Neurology
DX: G40.009 Localization-related (focal) (partial) idiopathic epilepsy and epileptic syndromes with seizures of localized onset, not intractable, without status epilepticus (principal); R29.6 Repeated falls
CPT/HCPCS: 36415; 80156; 80184; 80188; 80201

== ENCOUNTER 2019-04-28 14:20 | Emergency (ER) | payer MEDICARE, MEDICAID, SELFPAY ==
[2018-10-31 07:58] VITALS: BMI 35.4
[2019-04-28 14:21] VITALS: BP 101/63; PULSE 82; RESP 16; TEMP 35.9; O2SAT 98; BMI 33.2
[2019-04-28] MEDS: Diphth,Pertuss(Acell),Tet Vac 0.5 ML Vial IM (14:38)
--- NOTE | 2019-04-28 15:20 | ED.DCSUM_ITS ---
History of Present Illness Chief Complaint: Laceration Narrative: Patient presenting secondary to a fall and a lip and chin laceration. Tetanus status is not up-to-date. Patient states that he has falling episodes which have been evaluated by neurology multiple times. Patient reports that he had an episode of it today where he fell into a kitchen counter. He denies loss of consciousness. He denies any visual changes numbness or weakness. Denies any nausea vomiting or confusion. Patient suffered a laceration to his lower lip and his chin. He is not on any sort of anticoagulants. Review of systems otherwise negative. Past Medical History - Allergies and Home Meds Allergies/Adverse Reactions: Allergies aspirin Allergy (Severe, Verified 04/28/19 14:20) swelling of lips red dye Allergy (Intermediate, Verified 04/28/19 14:20) facial swelling isoniazid Adverse Reaction (Verified 04/28/19 14:20) Nausea Primary Care Physician: Isabelle Aburto MD [Primary Care Provider] - 3-5 Days suture removal Past Medical History: - - falling episodes Smoking Status: Never smoker - Family History Paternal Family History: Reports: Unknown Review of Systems All systems negative except as indicated Eyes: Denies: Visual changes - bilaterally Cardiovascular: Denies: Chest pain Respiratory: Denies: Dyspnea Gastrointestinal: Denies: Nausea, Vomiting Skin: Reports: Wounds Physical Exam Vital Signs/Narrative: Vital Signs Temp Pulse Resp BP Pulse Ox 04/28/19 14:21 96.7 F L 82 16 101/63 98 General: Well nourished, Well developed Head: Normocephalic, Atraumatic Eyes: Perrl, EOMI ENT: - - Lower lip shows evidence of a 3 cm laceration that goes up to the vermilion border but does not cross it and then goes into the patient's mouth ending just before the mucosa. No evidence of malocclusion. Poor dentition. There is a 0.5 cm laceration under the left side of the patient's chin. Neck: Nontender, Full ROM Cardiovascular: Regular rate, Regular rhythm, No murmurs Respiratory: No distress, CTA bilaterally, Chest nontender Abdomen: Soft, Nontender, Nondistended, Normal bowel sounds Back: Nontender Skin: Normal color, No rash Neurological: Alert, Oriented x3, Cranial nerves II-XII grossly intact, Normal Strength, Normal Sensation Psychological: Normal affect Diagnostic/Tx/Re-eval - Medical Decision Making Patient presented secondary to lacerations to the lip and chin. This was noted in the procedure note. Patient does not meet head imaging criteria per the [place] head CT rules. Patient's tetanus status was updated. Patient was discharged with follow-up with primary care for suture removal. Laceration No standard instances Length: 36 in Depth: Skin Shape: Flap Prep: Sterile Conditions, Shure-Clens Laceration Repair: Lidocaine with epi Irrigated (ml): 100 Number of Sutures/Vanesa: 6 Stitch Description: Ethilon, 5-0 Comment: Foreign material was visualized and removed. Second laceration on the chin was addressed with scrubbing with Shur-Clens and irrigation with 100 cc of normal saline. A single 5-0 nylon suture was placed in simple interrupted fashi on with good approximation. Disposition: Home ED Disposition - Plan for ED Patient: Disposition: Home or Assisted Living Diagnosis: Lip laceration, Chin laceration Instructions: LACERATION, All Referrals: Isabelle Aburto MD [Primary Care Provider] - 3-5 Days suture removal
== END 2019-04-28 15:43 | disposition home or self-care (01) ==
PROVIDERS: Emergency Provider Emergency Medicine; Family Provider Family Medicine; PCP Family Medicine
DX: S01.511A Laceration without foreign body of lip, initial encounter (principal); S01.81XA Laceration without foreign body of other part of head, initial encounter; W19.XXXA Unspecified fall, initial encounter; Z91.81 History of falling; Y93.9 Activity, unspecified; Y92.9 Unspecified place or not applicable
CPT/HCPCS: 12013; 90471; 90715; 99283

== ENCOUNTER → 2019-05-03 | Outpatient (CLI) | payer MEDICARE, MEDICAID, SELFPAY ==
[2019-04-28 14:21] VITALS: BMI 33.2
== END | disposition home or self-care (01) ==
LOC: LABSPEC 13:03
PROVIDERS: Family Provider Family Medicine; PCP Family Medicine; Referring Provider Family Medicine; Visit Provider Family Medicine
DX: S01.511A Laceration without foreign body of lip, initial encounter (principal)
CPT/HCPCS: 87070; 87077; 87186; 87205

== ENCOUNTER 2020-01-13 22:21 | Emergency (ER) | payer MEDICARE, MEDICAID, SELFPAY ==
[2020-01-13 22:22] VITALS: BP 0/0; PULSE 0; RESP 0; TEMP -17.7; TEMP 0; O2SAT 0; BMI 35.9
--- NOTE | 2020-01-13 23:47 | ED.VIS.GEN ---
History of Present Illness Chief Complaint: CPR Informant: Family, Registered Route Associate Narrative: Patient presents via EMS for the evaluation of cardiac arrest. Mother arrives after the patient was pronounced and tells me that on Friday he had ate a large amount chocolate cookies and some cheer wine. She states that by Friday evening he was having a lot of vomiting. Friday he felt ill and had decreased p.o. 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 he was having difficulty time breathing stating that it was labored. She states his eyes were open but he was not very responsive and she would occasionally say something to him and he would say what. He would occasionally drink some Pedialyte from a straw that she offered him. Tonight though she became very concerned and called EMS. EMS states that he was agonal aspirations for them. On the monitor showed V. fib so they delivered a shock. This led to asystole and CPR began and they transported him to the hospital. He did have a large amount of emesis on him that occurred in the ambulance during CPR. Past Medical History - Allergies and Home Meds Allergies/Adverse Reactions: Allergies aspirin Allergy (Severe, Verified 01/13/20 22:49) swelling of lips red dye Allergy (Intermediate, Verified 01/13/20 22:49) facial swelling isoniazid Adverse Reaction (Verified 01/13/20 22:49) Nausea Primary Care Physician: Isabelle Aburto MD [Primary Care Provider] - Smoking Status: Current every day smoker - Family History Paternal Family History: Reports: Unknown Review of Systems ROS: Unable to Obtain Physical Exam Vital Signs/Narrative: Vital Signs Temp Pulse Resp BP Pulse Ox 01/13/20 22:22 0 F L 0 L 0 L 0/0 L 0 Inital Vital Signs reviewed: Yes General: Well nourished, Well developed, Obese Head: Normocephalic, Atraumatic Eyes: EOMI, - - Pupils are fixed and dilated. There is conjunctival injection bilaterally. ENT: - - There is emesis on his face and in the airway Cardiovascular: - - There is no cardiac activity on ultrasound and there is no electrical activity on the monitor Skin: - - Patient is cold and mottled Neurological: - - Patient is unresponsive Diagnostic/Tx/Re-eval - Medical Decision Making An LMA airway was placed. Bilateral tibial IO's were placed the left being not functional in the right was functional. ACLS protocol instituted. After approximately 30 minutes of CPR rhythm check showed a flatline. There is no cardiac activity and the patient was pronounced . I personally discussed with the mother and nursing discussed with diving supervisor. ED Disposition - Plan for ED Patient: Disposition: Diagnosis: Cardiac arrest Referrals: Isabelle Aburto MD [Primary Care Provider] -
[2020-01-14 01:56] VITALS: BP 114/80; PULSE 83; RESP 17; O2SAT 97
== END 2020-01-14 02:30 ==
PROVIDERS: Emergency Provider Emergency Medicine; PCP Family Medicine
DX: I46.9 Cardiac arrest, cause unspecified (principal); E66.9 Obesity, unspecified; F17.200 Nicotine dependence, unspecified, uncomplicated
CPT/HCPCS: 92950; 99282; J7030